=== PATIENT | female | born 1965 | race African-American/Black ===

== ENCOUNTER 2018-09-02 15:04 | Inpatient (IN) | payer MEDICARE, MEDICAID ==
[~2018-09-02] VITALS: Ht 162.6 cm; Wt 132.0 kg
[~2018-09-02 15:04] MED LIST: AYG5; BUDE6HFA; CIPR-263; COLL30OI; FLUO40CA49; FURO40TA5; HYDR-519; LEVO100T9
[2018-09-02 16:00] VITALS: BP 133/69
[2018-09-02] MEDS ORDERED: [UNRECOGNIZED DRUG - CODE] PO (16:46)
[2018-09-02] MEDS ORDERED: LISI40TA4 MT (16:46)
[2018-09-02] MEDS ORDERED: FLUO40CA49 MT (16:46)
[2018-09-02] MEDS ORDERED: CARV12.545 MT (16:46)
[2018-09-02] MEDS ORDERED: GABA-531 MT (16:46)
[2018-09-02] MEDS ORDERED: LINA290C MT (16:46)
[2018-09-02] MEDS ORDERED: PANT20TA3 MT (16:46)
[2018-09-02 17:15] VITALS: BP 146/58
[2018-09-02 17:23] VITALS: BP 133/69
[2018-09-02 18:47] LABS: HEMATOCRIT. 25.4 % (36.0-48.0); HEMOGLOBIN. 7.7 g/dL (12.0-16.0); MEAN CORPUSCULAR HEMOGLOBIN 20.9 pg (28.0-32.0); MEAN CORPUSCULAR VOLUME 69.1 fL (81.0-99.0); MEAN PLATELET VOLUME 7.5 fl (7.4-10.4); PLATELET 403 x1000/uL (130-400); RED BLOOD CELL COUNT 3.67 mill/uL (4.2-5.4); RED CELL DISTRIBUTION WIDTH 20.2 % (11.6-14.6)
[2018-09-02 18:49] LABS: INR 1.1; PROTHROMBIN TIME 11.1 sec (9.1-11.1)
[2018-09-02 18:59] LABS: CHLORIDE 104 mEq/L (98-107)
[2018-09-02] MEDS ORDERED: IPRATROPIUM/ALBUTEROL 0.5-3(2.5)MG/3ML NEB HHN PRN (19:45)
[2018-09-02 19:47] LABS: PLATELET ESTIMATE INCREASED
[2018-09-02 20:00] VITALS: BP 137/56
[2018-09-02] MEDS: HYDROCODONE/ACETAMINOPHEN 10/325MG TABLET PO PRN (20:15)
[2018-09-02] MEDS ORDERED: FUROSEMIDE 20MG/2ML VIAL IVP NR (20:30)
[2018-09-02] MEDS ORDERED: DICLOFENAC SODIUM 50MG EC TABLET PO SCH (21:00)
[2018-09-02] MEDS: LEVOTHYROXINE SODIUM 100MCG TABLET PO SCH (21:09)
[2018-09-02] MEDS: GABAPENTIN 300MG CAPSULE PO SCH (21:09)
[2018-09-02] MEDS: CARVEDILOL 12.5MG TABLET PO SCH (21:09)
[2018-09-02 23:05] VITALS: BP 121/51
[2018-09-02 23:20] VITALS: BP 117/49
[2018-09-03] VITALS (7 sets, daily range): BP systolic 105–160; BP diastolic 50–94
[2018-09-03] MEDS: DICLOFENAC SODIUM 50MG EC TABLET PO SCH ×3 (00:03→20:29)
[2018-09-03] MEDS: LEVOTHYROXINE SODIUM 100MCG TABLET PO SCH ×2 (00:03→15:20)
[2018-09-03] MEDS: IPRATROPIUM/ALBUTEROL 0.5-3(2.5)MG/3ML NEB HHN SCH ×3 (01:35→20:17)
[2018-09-03] MEDS: HYDROCODONE/ACETAMINOPHEN 10/325MG TABLET PO PRN ×3 (02:19→19:12)
[2018-09-03] MEDS: DEXT 5%/0.45% NACL 1000ML 1,000 ML IV SCH ×2 (02:23→08:50)
[2018-09-03] MEDS: GABAPENTIN 300MG CAPSULE PO SCH ×3 (06:00→20:29)
[2018-09-03] MEDS ORDERED: POVIDONE-IODINE OINT 28.4GM TOP ONE (06:43)
[2018-09-03] MEDS ORDERED: BUPIVACAINE HCL/EPINEPHRINE 0.5%/0.0005 30ML ONE (06:43)
[2018-09-03 06:54] LABS: BASOPHILS % 0.3 % (0.0-2.0); EOSINOPHILS % 1.1 % (0.0-5.0); HEMATOCRIT. 25.1 % (36.0-48.0); HEMOGLOBIN. 7.6 g/dL (12.0-16.0); LYMPHOCYTES % 15.8 % (20.0-50.0); MEAN CORPUSCULAR HEMOGLOBIN 21.3 pg (28.0-32.0); MEAN CORPUSCULAR VOLUME 70.7 fL (81.0-99.0); MEAN PLATELET VOLUME 7.5 fl (7.4-10.4); MONOCYTES % 10.4 % (2.0-8.0); NEUTROPHILS % 72.4 % (40.0-76.0); PLATELET 355 x1000/uL (130-400); RED BLOOD CELL COUNT 3.56 mill/uL (4.2-5.4); RED CELL DISTRIBUTION WIDTH 20.4 % (11.6-14.6)
[2018-09-03] MEDS ORDERED: BUPIVACAINE HCL/DEXTROSE/PF 0.75% 2ML AMP INJ ONE (06:55)
[2018-09-03 07:19] LABS: CHLORIDE 104 mEq/L (98-107)
[2018-09-03] MEDS ORDERED: VANCOMYCIN HCL 500 MG/VIAL ONE (07:46)
[2018-09-03] MEDS ORDERED: BUPIVACAINE HCL/PF 0.5% (5MG/ML) 10ML ONE (07:56)
[2018-09-03] MEDS ORDERED: BUPIVACAINE HCL 0.5% (5MG/ML) 50ML ONE (08:01)
[2018-09-03] MEDS ORDERED: SODIUM CHLORIDE 0.9% 1,000 ML IV NR (08:13)
[2018-09-03] MEDS ORDERED: MEPERIDINE HCL/PF 25MG/ML CPJ IV PRN (08:15)
[2018-09-03] MEDS ORDERED: HYDROMORPHONE HCL/PF 2MG/ML CPJ IV PRN (08:15)
[2018-09-03] MEDS ORDERED: ONDANSETRON HCL 4MG/2ML INJ IV PRN (08:15)
[2018-09-03] MEDS: CARVEDILOL 12.5MG TABLET PO SCH ×2 (09:00→20:29)
[2018-09-03] MEDS: LISINOPRIL 40MG TABLET PO SCH (09:00)
[2018-09-03] MEDS: FUROSEMIDE 40MG TABLET PO SCH (09:00)
[2018-09-03] MEDS: BUDESONIDE 0.5MG/2ML NEB HHN SCH ×2 (09:50→20:17)
[2018-09-03] MEDS: FLUOXETINE HCL 20MG CAPSULE PO SCH (11:39)
[2018-09-03] MEDS: PANTOPRAZOLE 40MG DR TABLET PO SCH (11:39)
[2018-09-03 16:51] LABS: INR 1.1; PROTHROMBIN TIME 11.4 sec (9.1-11.1)
[2018-09-03 17:29] LABS: HEMATOCRIT 25.6 % (36.0-48.0); HEMOGLOBIN 7.7 g/dL (12.0-16.0)
[2018-09-04] VITALS: BP 105/49
[2018-09-04] MEDS: BUDESONIDE 0.5MG/2ML NEB HHN SCH ×2 (00:05→09:05)
[2018-09-04] MEDS: IPRATROPIUM/ALBUTEROL 0.5-3(2.5)MG/3ML NEB HHN SCH ×3 (00:05→15:33)
[2018-09-04 04:00] VITALS: BP 137/75
[2018-09-04] MEDS: HYDROCODONE/ACETAMINOPHEN 10/325MG TABLET PO PRN ×2 (04:57→11:32)
[2018-09-04] MEDS: PANTOPRAZOLE 40MG DR TABLET PO SCH (05:46)
[2018-09-04] MEDS: GABAPENTIN 300MG CAPSULE PO SCH ×2 (05:46→14:55)
[2018-09-04] MEDS: LEVOTHYROXINE SODIUM 100MCG TABLET PO SCH (05:47)
[2018-09-04 08:00] VITALS: BP 126/51
[2018-09-04] MEDS: FLUOXETINE HCL 20MG CAPSULE PO SCH (09:06)
[2018-09-04] MEDS: LISINOPRIL 40MG TABLET PO SCH (09:06)
[2018-09-04] MEDS: DICLOFENAC SODIUM 50MG EC TABLET PO SCH (09:06)
[2018-09-04] MEDS: FUROSEMIDE 40MG TABLET PO SCH ×2 (09:06→09:09)
[2018-09-04] MEDS: CARVEDILOL 12.5MG TABLET PO SCH (09:06)
[2018-09-04 12:00] VITALS: BP 161/102
[2018-09-04] MEDS ORDERED: HYDROMORPHONE HCL/PF 2MG/ML CPJ IV PRN (12:30)
[2018-09-04] MEDS ORDERED: CLINDAMYCIN HCL 150MG CAPSULE PO SCH (14:00)
[2018-09-04] MEDS ORDERED: IOHEXOL-350 100 ML BOTTLE ONE (14:33)
[2018-09-04 16:00] VITALS: BP 96/45
[2018-09-04 18:32] VITALS: BP 96/45
== END 2018-09-04 20:35 | disposition home health service (06) | DRG 580 ==
LOC: 8WST 15:04
PROVIDERS: ADMIT Internal Medicine Critical Care Medicine; ATTEND Internal Medicine Critical Care Medicine
PROC: 30233N1 Transfusion of Nonautologous Red Blood Cells into Peripheral Vein, Percutaneous Approach (ICD-10-PCS; 2018-09-02)
PROC: 3E0T3BZ Introduction of Anesthetic Agent into Peripheral Nerves and Plexi, Percutaneous Approach (ICD-10-PCS; 2018-09-02)
PROC: 0KBT0ZZ Excision of Left Lower Leg Muscle, Open Approach (ICD-10-PCS; principal; 2018-09-03)
PROC: 0KBT0ZX Excision of Left Lower Leg Muscle, Open Approach, Diagnostic (ICD-10-PCS; 2018-09-03)
PROC: B548ZZA Ultrasonography of Superior Vena Cava, Guidance (ICD-10-PCS; 2018-09-04)
PROC: 02HV33Z Insertion of Infusion Device into Superior Vena Cava, Percutaneous Approach (ICD-10-PCS; 2018-09-04)
PROC: B5181ZA Fluoroscopy of Superior Vena Cava using Low Osmolar Contrast, Guidance (ICD-10-PCS; 2018-09-04)
DX: L03.116 Cellulitis of left lower limb (principal); L97.325 Non-pressure chronic ulcer of left ankle with muscle involvement without evidence of necrosis; I50.32 Chronic diastolic (congestive) heart failure; I83.223 Varicose veins of left lower extremity with both ulcer of ankle and inflammation; E46 Unspecified protein-calorie malnutrition; L97.329 Non-pressure chronic ulcer of left ankle with unspecified severity; D64.9 Anemia, unspecified; J44.9 Chronic obstructive pulmonary disease, unspecified; G62.9 Polyneuropathy, unspecified; E66.01 Morbid (severe) obesity due to excess calories; G89.29 Other chronic pain; E03.9 Hypothyroidism, unspecified; I11.0 Hypertensive heart disease with heart failure; F32.9 Major depressive disorder, single episode, unspecified; I73.9 Peripheral vascular disease, unspecified; E05.90 Thyrotoxicosis, unspecified without thyrotoxic crisis or storm; F41.9 Anxiety disorder, unspecified; Z88.0 Allergy status to penicillin; Z88.2 Allergy status to sulfonamides
CPT/HCPCS: 36415; 36569; 75635; 76937; 77001; 80048; 83036; 84134; 85014; 85018; 85384; 86850; 86900; 86920; 87070; 87075; 87077; 87102; 87186; 88304; 93923; 94640; A6261; C1725; J0171; J1170; J1940; J3370; J3490; J7040; J7620; J7626; P9016; Q9967

== ENCOUNTER 2018-10-21 16:52 | Inpatient (IN) | payer MEDICARE, MEDICAID ==
[~2018-10-21] VITALS: Ht 162.6 cm; Wt 126.6 kg
[~2018-10-21 16:52] MED LIST changes: +CARV12.545 MT; +FLUO40CA49 MT; +GABA-531 MT; +LINA290C MT; +LISI40TA4 MT; +PANT20TA3 MT; +[UNRECOGNIZED DRUG - CODE] PO
[2018-10-22 14:00] VITALS: BP 163/85
[2018-10-22] MEDS ORDERED: DOCUSATE SODIUM 100MG CAPSULE PO PRN (15:30)
[2018-10-22] MEDS ORDERED: LORAZEPAM 2MG/ML CPJ IV PRN (15:30)
[2018-10-22] MEDS ORDERED: ONDANSETRON HCL 4MG/2ML INJ IV PRN (15:30)
[2018-10-22] MEDS ORDERED: ACETAMINOPHEN 325MG TABLET PO PRN (15:30)
[2018-10-22] MEDS ORDERED: CLONIDINE 0.1MG TABLET PO PRN (15:30)
[2018-10-22 16:00] VITALS: BP 103/32
[2018-10-22 16:06] VITALS: BP 103/32
[2018-10-22] MEDS: HYDROMORPHONE HCL/PF 2MG/ML CPJ IV PRN ×2 (17:27→22:26)
[2018-10-22] MEDS ORDERED: INFLUENZA VIRUS VACCINE(AFLURIA) 0.5ML SYR IM ONE (17:30)
[2018-10-22 18:24] LABS: BASOPHILS % 0.7 % (0.0-2.0); EOSINOPHILS % 1.6 % (0.0-5.0); HEMATOCRIT. 29.8 % (36.0-48.0); HEMOGLOBIN. 8.9 g/dL (12.0-16.0); LYMPHOCYTES % 38.5 % (20.0-50.0); MEAN CORPUSCULAR VOLUME 73.8 fL (81.0-99.0); MEAN PLATELET VOLUME 6.6 fl (7.4-10.4); NEUTROPHILS % 52.2 % (40.0-76.0); PLATELET 480 x1000/uL (130-400); RED BLOOD CELL COUNT 4.03 mill/uL (4.2-5.4); RED CELL DISTRIBUTION WIDTH 21.3 % (11.6-14.6)
[2018-10-22 18:30] LABS: INR 1.1
[2018-10-22 18:36] LABS: CHLORIDE 105 mEq/L (98-107)
[2018-10-22 20:00] VITALS: BP 120/61
[2018-10-22] MEDS: HYDROCODONE/ACETAMINOPHEN 10/325MG TABLET PO PRN (20:49)
[2018-10-22] MEDS: ENOXAPARIN 30MG/0.3ML SYR SUBCUT SCH (20:49)
[2018-10-22] MEDS: BUDESONIDE 0.5MG/2ML NEB HHN SCH (21:06)
[2018-10-22] MEDS: IPRATROPIUM/ALBUTEROL 0.5-3(2.5)MG/3ML NEB INH PRN (21:06)
[2018-10-22] MEDS: SODIUM CHLORIDE 0.9% INJ 3ML FLUSH IVF SCH (22:26)
[2018-10-22] MEDS: DICLOFENAC SODIUM 50MG EC TABLET PO SCH (22:26)
[2018-10-22] MEDS: GABAPENTIN 300MG CAPSULE PO SCH (22:47)
[2018-10-23] VITALS (7 sets, daily range): BP systolic 111–145; BP diastolic 52–77
[2018-10-23] MEDS: HYDROMORPHONE HCL/PF 2MG/ML CPJ IV PRN ×4 (02:29→20:24)
[2018-10-23 06:53] LABS: BASOPHILS % 0.2 % (0.0-2.0); EOSINOPHILS % 2.8 % (0.0-5.0); HEMATOCRIT. 26.7 % (36.0-48.0); HEMOGLOBIN. 7.9 g/dL (12.0-16.0); LYMPHOCYTES % 45.6 % (20.0-50.0); MEAN CORPUSCULAR HEMOGLOBIN 21.9 pg (28.0-32.0); MEAN CORPUSCULAR VOLUME 74.3 fL (81.0-99.0); MEAN PLATELET VOLUME 6.7 fl (7.4-10.4); MONOCYTES % 9.7 % (2.0-8.0); NEUTROPHILS % 41.7 % (40.0-76.0); PLATELET 432 x1000/uL (130-400); RED BLOOD CELL COUNT 3.59 mill/uL (4.2-5.4); RED CELL DISTRIBUTION WIDTH 20.7 % (11.6-14.6)
[2018-10-23] MEDS: OMEPRAZOLE 20MG CAPSULE EXTENDED RELEASE PO SCH (06:56)
[2018-10-23] MEDS: GABAPENTIN 300MG CAPSULE PO SCH ×3 (06:56→22:01)
[2018-10-23] MEDS: SODIUM CHLORIDE 0.9% INJ 3ML FLUSH IVF SCH ×3 (06:58→22:01)
[2018-10-23 07:03] LABS: CHLORIDE 103 mEq/L (98-107)
[2018-10-23] MEDS: ENOXAPARIN 30MG/0.3ML SYR SUBCUT SCH (08:57)
[2018-10-23] MEDS: FUROSEMIDE 40MG TABLET PO SCH (10:31)
[2018-10-23] MEDS: DICLOFENAC SODIUM 50MG EC TABLET PO SCH ×2 (10:31→22:01)
[2018-10-23] MEDS: FLUOXETINE HCL 20MG CAPSULE PO SCH (10:32)
[2018-10-23] MEDS: IPRATROPIUM/ALBUTEROL 0.5-3(2.5)MG/3ML NEB INH PRN (13:46)
[2018-10-24] VITALS: BP 115/60
[2018-10-24] MEDS: HYDROMORPHONE HCL/PF 2MG/ML CPJ IV PRN ×3 (01:00→10:50)
[2018-10-24] MEDS: HYDROCODONE/ACETAMINOPHEN 10/325MG TABLET PO PRN ×2 (02:38→22:28)
[2018-10-24 03:40] VITALS: BP 130/68
[2018-10-24] MEDS: OMEPRAZOLE 20MG CAPSULE EXTENDED RELEASE PO SCH (04:10)
[2018-10-24] MEDS: GABAPENTIN 300MG CAPSULE PO SCH ×3 (04:10→21:51)
[2018-10-24] MEDS: SODIUM CHLORIDE 0.9% INJ 3ML FLUSH IVF SCH ×3 (06:28→21:51)
[2018-10-24 08:00] VITALS: BP 112/52
[2018-10-24] MEDS: FUROSEMIDE 40MG TABLET PO SCH (10:36)
[2018-10-24] MEDS: DICLOFENAC SODIUM 50MG EC TABLET PO SCH ×2 (10:36→21:51)
[2018-10-24] MEDS: FLUOXETINE HCL 20MG CAPSULE PO SCH (10:50)
[2018-10-24] MEDS ORDERED: NORMAL SALINE 0.9% 10 ML SYR ONE (12:24)
[2018-10-24] MEDS ORDERED: BACITRACIN 50,000 UNITS/VIAL ONE (12:25)
[2018-10-24] MEDS ORDERED: BUPIVACAINE HCL 0.5% (5MG/ML) 50ML ONE (12:25)
[2018-10-24] MEDS ORDERED: CLINDAMYCIN 900 MG in DEXTROSE 5% WATER 50 ML IV NR (12:36)
[2018-10-24] MEDS ORDERED: MIDAZOLAM HCL 2 MG/2 ML VIAL ONE ×3 (12:39→13:04)
[2018-10-24] MEDS ORDERED: FENTANYL CITRATE/PF 50MCG/ML 2ML VIAL ONE ×3 (12:40→13:33)
[2018-10-24] MEDS ORDERED: BUPIVACAINE HCL/DEXTROSE/PF 0.75% 2ML AMP INJ ONE (12:47)
[2018-10-24] MEDS ORDERED: LIDOCAINE HCL/PF 1% 10 MG/ML 5ML VIAL ONE ×2 (13:06→13:19)
[2018-10-24] MEDS ORDERED: PROPOFOL 200MG/20ML VIAL IV ONE ×2 (13:10→13:35)
[2018-10-24] MEDS ORDERED: FENTANYL CITRATE/PF 50MCG/ML 2ML VIAL IV PRN ×2 (14:30)
[2018-10-24] MEDS ORDERED: DIPHENHYDRAMINE 50MG/ML VIAL IV PRN (14:30)
[2018-10-24] MEDS ORDERED: DEXAMETHASONE 10 MG/ML VIAL IV PRN (14:30)
[2018-10-24] MEDS ORDERED: ONDANSETRON HCL 4MG/2ML INJ IV PRN (14:30)
[2018-10-24] MEDS: FENTANYL CITRATE/PF 50MCG/ML 2ML VIAL IV PRN ×2 (16:59→17:42)
[2018-10-24 17:45] VITALS: BP 135/71
[2018-10-24 20:00] VITALS: BP 128/51
[2018-10-25] VITALS: BP 106/67
[2018-10-25] MEDS: IPRATROPIUM/ALBUTEROL 0.5-3(2.5)MG/3ML NEB INH PRN ×2 (00:42→09:34)
[2018-10-25] MEDS: BUDESONIDE 0.5MG/2ML NEB HHN SCH ×2 (00:43→09:34)
[2018-10-25 04:00] VITALS: BP 123/61
[2018-10-25] MEDS: HYDROMORPHONE HCL/PF 2MG/ML CPJ IV PRN (04:20)
[2018-10-25] MEDS: GABAPENTIN 300MG CAPSULE PO SCH ×2 (06:26→14:08)
[2018-10-25] MEDS: SODIUM CHLORIDE 0.9% INJ 3ML FLUSH IVF SCH (06:26)
[2018-10-25] MEDS: OMEPRAZOLE 20MG CAPSULE EXTENDED RELEASE PO SCH (06:26)
[2018-10-25 07:53] VITALS: BP 113/64
[2018-10-25] MEDS: FLUOXETINE HCL 20MG CAPSULE PO SCH (07:58)
[2018-10-25] MEDS: DICLOFENAC SODIUM 50MG EC TABLET PO SCH (07:59)
[2018-10-25] MEDS: FUROSEMIDE 40MG TABLET PO SCH (07:59)
[2018-10-25] MEDS: HYDROCODONE/ACETAMINOPHEN 10/325MG TABLET PO PRN ×2 (07:59→14:08)
[2018-10-25 10:24] VITALS: BP 113/64
[2018-10-25 12:00] VITALS: BP 90/42
[2018-10-25 14:08] VITALS: BP 127/73
[2018-10-26] MEDS ORDERED: FAMOTIDINE 20MG TABLET PO SCH (09:00)
== END 2018-10-25 15:02 | disposition home health service (06) | DRG 571 ==
LOC: 6EST 16:52 → 8WST 10-23 00:45
PROVIDERS: ADMIT Internal Medicine Critical Care Medicine; ATTEND Internal Medicine Critical Care Medicine
PROC: 0JBR0ZZ Excision of Left Foot Subcutaneous Tissue and Fascia, Open Approach (ICD-10-PCS; principal; 2018-10-24)
DX: L03.116 Cellulitis of left lower limb (principal); L97.329 Non-pressure chronic ulcer of left ankle with unspecified severity; I50.32 Chronic diastolic (congestive) heart failure; Z68.42 Body mass index [BMI] 45.0-49.9, adult; I73.9 Peripheral vascular disease, unspecified; D64.9 Anemia, unspecified; J44.9 Chronic obstructive pulmonary disease, unspecified; I11.0 Hypertensive heart disease with heart failure; E03.9 Hypothyroidism, unspecified; Z96.652 Presence of left artificial knee joint; F32.9 Major depressive disorder, single episode, unspecified; E66.01 Morbid (severe) obesity due to excess calories; F41.9 Anxiety disorder, unspecified; G62.9 Polyneuropathy, unspecified; I87.2 Venous insufficiency (chronic) (peripheral); G89.29 Other chronic pain; Z80.8 Family history of malignant neoplasm of other organs or systems; Z83.3 Family history of diabetes mellitus; Z86.718 Personal history of other venous thrombosis and embolism; Z88.0 Allergy status to penicillin; Z88.2 Allergy status to sulfonamides; Z88.8 Allergy status to other drugs, medicaments and biological substances; Z79.1 Long term (current) use of non-steroidal anti-inflammatories (NSAID); Z79.2 Long term (current) use of antibiotics; Z79.899 Other long term (current) drug therapy
CPT/HCPCS: 36415; 71045; 80048; 93005; 94640; J1170; J1200; J1650; J2250; J2704; J3010; J3490; J7060; J7620; J7626

== ENCOUNTER 2023-01-13 17:14 | Inpatient (IN) | payer MEDICARE, MEDICAID ==
[~2023-01-13] VITALS: Ht 162.6 cm; Wt 106.6 kg
[~2023-01-13 17:14] MED LIST changes: -GABA-531 MT; +GABA-532 MT; +LISI40TA13 MT; -LISI40TA4 MT; +PANT20TA17 MT; -PANT20TA3 MT
[2023-01-13] MEDS ORDERED: ACETAMINOPHEN 325MG TABLET PO ONE (18:45)
[2023-01-13 19:18] LABS: BASOPHILS % 0.3 % (0.0-2.0); EOSINOPHILS % 4.1 % (0.0-5.0); HEMATOCRIT. 35.4 % (36.0-48.0); HEMOGLOBIN. 11.7 g/dL (12.0-16.0); LYMPHOCYTES % 44.1 % (20.0-50.0); MEAN CORPUSCULAR HEMOGLOBIN 30.9 pg (28.0-32.0); MEAN CORPUSCULAR VOLUME 93.3 fL (81.0-99.0); MEAN PLATELET VOLUME 7.6 fl (7.4-10.4); MONOCYTES % 7.6 % (2.0-8.0); NEUTROPHILS % 43.9 % (40.0-76.0); PLATELET 235 x1000/uL (130-400); RED BLOOD CELL COUNT 3.79 mill/uL (4.2-5.4)
[2023-01-13 19:23] LABS: CHLORIDE 106 mEq/L (98-107)
[2023-01-13] MEDS ORDERED: ACETAMINOPHEN 325MG TABLET PO NR (22:45)
[2023-01-13] MEDS ORDERED: KETOROLAC 30MG/ML VIAL IV PRN (22:45)
[2023-01-13] MEDS: BUDESONIDE 0.5MG/2ML NEB HHN SCH (23:30)
[2023-01-13] MEDS: IPRATROPIUM/ALBUTEROL 0.5-3(2.5)MG/3ML NEB HHN SCH (23:30)
[2023-01-14 01:19] LABS: CLARITY URINE CLEAR (CLEAR); COLOR URINE YELLOW (YELLOW); KETONES URINE TRACE (NEGATIVE); LEUKOCYTE ESTERASE URINE TRACE (NEGATIVE); NITRITE URINE NEGATIVE (NEGATIVE); OCCULT BLOOD URINE NEGATIVE (NEGATIVE); PH URINE 6.5 (4.5-8.0); PROTEIN URINE NEGATIVE (NEGATIVE)
[2023-01-14] MEDS ORDERED: MORPHINE SULFATE 4 MG/ML CPJ (NOT FOR IM USE) IV ONE (02:15)
[2023-01-14] MEDS: LIDOCAINE 5% PATCH TOP SCH ×2 (02:53→11:12)
[2023-01-14] MEDS ORDERED: ONDANSETRON HCL 4MG/2ML INJ IV PRN (03:00)
[2023-01-14] MEDS ORDERED: CLONIDINE 0.1MG TABLET PO PRN (03:00)
[2023-01-14] MEDS ORDERED: DIPHENHYDRAMINE 50MG/ML VIAL IV PRN (03:00)
[2023-01-14] MEDS ORDERED: ACETAMINOPHEN 325MG TABLET PO PRN (03:00)
[2023-01-14] MEDS ORDERED: NALOXONE HCL 0.4MG/ML VIAL IV PRN (03:15)
[2023-01-14 10:00] VITALS: BP 160/60
[2023-01-14 10:53] LABS: BASOPHILS % 0.4 % (0.0-2.0); EOSINOPHILS % 4.8 % (0.0-5.0); HEMATOCRIT. 35.5 % (36.0-48.0); HEMOGLOBIN. 12.1 g/dL (12.0-16.0); LYMPHOCYTES % 34.5 % (20.0-50.0); MEAN CORPUSCULAR HEMOGLOBIN 31.1 pg (28.0-32.0); MEAN CORPUSCULAR VOLUME 91.5 fL (81.0-99.0); MEAN PLATELET VOLUME 7.8 fl (7.4-10.4); MONOCYTES % 8.3 % (2.0-8.0); PLATELET 233 x1000/uL (130-400); RED BLOOD CELL COUNT 3.88 mill/uL (4.2-5.4); RED CELL DISTRIBUTION WIDTH 13.9 % (11.6-14.6)
[2023-01-14] MEDS: HYDROCODONE/ACETAMINOPHEN 5/325MG TABLET PO PRN ×2 (11:13→22:24)
[2023-01-14 11:23] LABS: CHLORIDE 104 mEq/L (98-107)
[2023-01-14] MEDS: IPRATROPIUM/ALBUTEROL 0.5-3(2.5)MG/3ML NEB HHN SCH ×2 (13:16→16:58)
[2023-01-14] MEDS ORDERED: POTASSIUM CHLORIDE 20MEQ TABLET SR PO NR (15:15)
[2023-01-14] MEDS ORDERED: LEVOTHYROXINE SODIUM 100MCG TABLET PO SCH (16:15)
[2023-01-14] MEDS ORDERED: NON FORMULARY PATIENT HOME MED XX SCH ×2 (16:15)
[2023-01-14] MEDS ORDERED: GABA800T97 PO ×2 (16:48→19:22)
[2023-01-14] MEDS: BUDESONIDE 0.5MG/2ML NEB HHN SCH (16:53)
[2023-01-14] MEDS ORDERED: PANT40TA51 MT (16:54)
[2023-01-14] MEDS ORDERED: OXYC1TAB12 PO (16:54)
[2023-01-14] MEDS ORDERED: LEVO100T9 MT ×2 (16:54→20:36)
[2023-01-14] MEDS ORDERED: FERR-63 PO (17:00)
[2023-01-14] MEDS ORDERED: DOCU100T MT (17:00)
[2023-01-14] MEDS: AMLODIPINE 10MG TABLET PO SCH (17:20)
[2023-01-14] MEDS: PANTOPRAZOLE 40MG DR TABLET PO SCH (17:20)
[2023-01-14] MEDS: FLUOXETINE HCL 20MG CAPSULE PO SCH (17:21)
[2023-01-14] MEDS: GABAPENTIN 300MG CAPSULE PO SCH (17:21)
[2023-01-14] MEDS: CARVEDILOL 12.5MG TABLET PO SCH (17:21)
[2023-01-14] MEDS ORDERED: CYCL10TA21 PO (19:16)
[2023-01-14] MEDS ORDERED: MELO-104 PO (19:22)
[2023-01-14] MEDS ORDERED: FLUO40CA49 PO (19:25)
[2023-01-14 19:54] VITALS: BP 128/84
[2023-01-14 23:33] VITALS: BP 136/82
[2023-01-15] MEDS: BUDESONIDE 0.5MG/2ML NEB HHN SCH ×3 (03:55→22:43)
[2023-01-15 04:00] VITALS: BP 154/36
[2023-01-15] MEDS: HYDROCODONE/ACETAMINOPHEN 5/325MG TABLET PO PRN ×3 (05:48→21:56)
[2023-01-15] MEDS: PANTOPRAZOLE 40MG DR TABLET PO SCH (05:48)
[2023-01-15 06:22] LABS: BASOPHILS % 0.3 % (0.0-2.0); EOSINOPHILS % 3.6 % (0.0-5.0); HEMATOCRIT. 37.3 % (36.0-48.0); HEMOGLOBIN. 12.6 g/dL (12.0-16.0); LYMPHOCYTES % 28.9 % (20.0-50.0); MEAN CORPUSCULAR HEMOGLOBIN 30.9 pg (28.0-32.0); MEAN CORPUSCULAR VOLUME 91.7 fL (81.0-99.0); MEAN PLATELET VOLUME 7.9 fl (7.4-10.4); MONOCYTES % 9.8 % (2.0-8.0); NEUTROPHILS % 57.4 % (40.0-76.0); PLATELET 246 x1000/uL (130-400); RED BLOOD CELL COUNT 4.07 mill/uL (4.2-5.4); RED CELL DISTRIBUTION WIDTH 14.2 % (11.6-14.6)
[2023-01-15 06:45] LABS: CHLORIDE 106 mEq/L (98-107)
[2023-01-15 06:55] LABS: HDL CHOLESTEROL 87 mg/dL (40-59); LDL CHOLESTEROL 122 mg/dL (5-100)
[2023-01-15 08:00] VITALS: BP 147/78
[2023-01-15] MEDS ORDERED: POTASSIUM CHLORIDE 20MEQ TABLET SR PO NR (09:00)
[2023-01-15] MEDS ORDERED: LORAZEPAM 0.5MG TABLET PO NR (09:00)
[2023-01-15] MEDS: FLUOXETINE HCL 20MG CAPSULE PO SCH ×2 (09:11→17:32)
[2023-01-15] MEDS: GABAPENTIN 300MG CAPSULE PO SCH ×3 (09:11→17:32)
[2023-01-15] MEDS: FUROSEMIDE 40MG TABLET PO SCH (09:11)
[2023-01-15] MEDS: CARVEDILOL 12.5MG TABLET PO SCH ×2 (09:17→17:33)
[2023-01-15] MEDS: LISINOPRIL 40MG TABLET PO SCH (09:18)
[2023-01-15] MEDS: AMLODIPINE 10MG TABLET PO SCH (09:18)
[2023-01-15] MEDS: IPRATROPIUM/ALBUTEROL 0.5-3(2.5)MG/3ML NEB HHN SCH (09:55)
[2023-01-15 12:00] VITALS: BP 142/75
[2023-01-15 20:00] VITALS: BP 109/78
[2023-01-15] MEDS: ATORVASTATIN CALCIUM 20MG TABLET PO SCH (21:55)
[2023-01-16 03:30] VITALS: BP 105/74
[2023-01-16] MEDS: HYDROCODONE/ACETAMINOPHEN 5/325MG TABLET PO PRN ×4 (03:45→20:47)
[2023-01-16] MEDS: LEVOTHYROXINE SODIUM 100MCG TABLET PO SCH (06:22)
[2023-01-16] MEDS: PANTOPRAZOLE 40MG DR TABLET PO SCH (06:23)
[2023-01-16 06:31] LABS: BASOPHILS % 0.4 % (0.0-2.0); EOSINOPHILS % 3.5 % (0.0-5.0); HEMATOCRIT. 36.8 % (36.0-48.0); HEMOGLOBIN. 12.4 g/dL (12.0-16.0); LYMPHOCYTES % 36.8 % (20.0-50.0); MEAN CORPUSCULAR HEMOGLOBIN 31.1 pg (28.0-32.0); MEAN CORPUSCULAR VOLUME 92.1 fL (81.0-99.0); MEAN PLATELET VOLUME 7.9 fl (7.4-10.4); MONOCYTES % 11.6 % (2.0-8.0); NEUTROPHILS % 47.7 % (40.0-76.0); PLATELET 240 x1000/uL (130-400); RED CELL DISTRIBUTION WIDTH 14.3 % (11.6-14.6)
[2023-01-16 07:00] LABS: CHLORIDE 105 mEq/L (98-107)
[2023-01-16 08:00] VITALS: BP 130/74
[2023-01-16] MEDS: CARVEDILOL 12.5MG TABLET PO SCH ×2 (09:32→17:59)
[2023-01-16] MEDS: AMLODIPINE 10MG TABLET PO SCH (09:34)
[2023-01-16] MEDS: GABAPENTIN 300MG CAPSULE PO SCH ×3 (09:34→17:58)
[2023-01-16] MEDS: FUROSEMIDE 40MG TABLET PO SCH (09:35)
[2023-01-16] MEDS: FLUOXETINE HCL 20MG CAPSULE PO SCH ×2 (09:35→17:58)
[2023-01-16] MEDS: LISINOPRIL 40MG TABLET PO SCH (09:35)
[2023-01-16 12:00] VITALS: BP 130/74
[2023-01-16] MEDS: IPRATROPIUM/ALBUTEROL 0.5-3(2.5)MG/3ML NEB HHN SCH (15:32)
[2023-01-16 16:00] VITALS: BP 130/74
[2023-01-16 20:00] VITALS: BP 112/67
[2023-01-16] MEDS: ATORVASTATIN CALCIUM 20MG TABLET PO SCH (20:53)
[2023-01-17] VITALS (7 sets, daily range): BP systolic 100–129; BP diastolic 59–80
[2023-01-17] MEDS: HYDROCODONE/ACETAMINOPHEN 5/325MG TABLET PO PRN ×3 (03:45→20:29)
[2023-01-17] MEDS: LEVOTHYROXINE SODIUM 100MCG TABLET PO SCH (06:20)
[2023-01-17] MEDS: AMLODIPINE 10MG TABLET PO SCH (08:20)
[2023-01-17] MEDS: GABAPENTIN 300MG CAPSULE PO SCH ×3 (08:20→16:44)
[2023-01-17] MEDS: IPRATROPIUM/ALBUTEROL 0.5-3(2.5)MG/3ML NEB HHN SCH ×2 (08:20→16:23)
[2023-01-17] MEDS: BUDESONIDE 0.5MG/2ML NEB HHN SCH (08:20)
[2023-01-17] MEDS: CARVEDILOL 12.5MG TABLET PO SCH ×2 (08:21→16:56)
[2023-01-17] MEDS: FAMOTIDINE 20MG TABLET PO SCH ×2 (08:21→20:34)
[2023-01-17] MEDS: LISINOPRIL 40MG TABLET PO SCH (08:22)
[2023-01-17] MEDS: FUROSEMIDE 40MG TABLET PO SCH (08:22)
[2023-01-17] MEDS: FLUOXETINE HCL 20MG CAPSULE PO SCH ×2 (08:42→16:43)
[2023-01-17] MEDS: ATORVASTATIN CALCIUM 20MG TABLET PO SCH (20:28)
== END 2023-01-17 23:41 | disposition home health service (06) | DRG 552 ==
LOC: ER 17:14 → 4WST 01-14 02:06 → 6EST 01-16 17:24
PROVIDERS: ADMIT Family Medicine Adult Medicine; ATTEND Family Medicine Adult Medicine
DX: M51.37 Other intervertebral disc degeneration, lumbosacral region (principal); I50.32 Chronic diastolic (congestive) heart failure; Z68.41 Body mass index [BMI] 40.0-44.9, adult; M79.7 Fibromyalgia; Z96.652 Presence of left artificial knee joint; I11.0 Hypertensive heart disease with heart failure; G62.9 Polyneuropathy, unspecified; E03.9 Hypothyroidism, unspecified; D64.9 Anemia, unspecified; E66.9 Obesity, unspecified; I83.009 Varicose veins of unspecified lower extremity with ulcer of unspecified site; F41.9 Anxiety disorder, unspecified; F32.A Depression, unspecified; E78.5 Hyperlipidemia, unspecified; I87.8 Other specified disorders of veins; J44.9 Chronic obstructive pulmonary disease, unspecified; G89.4 Chronic pain syndrome; M16.11 Unilateral primary osteoarthritis, right hip; M48.02 Spinal stenosis, cervical region; Z87.891 Personal history of nicotine dependence; Z88.0 Allergy status to penicillin; Z88.2 Allergy status to sulfonamides; Z91.018 Allergy to other foods; Z95.828 Presence of other vascular implants and grafts; Z88.8 Allergy status to other drugs, medicaments and biological substances; Z91.09 Other allergy status, other than to drugs and biological substances; Z79.899 Other long term (current) drug therapy
CPT/HCPCS: 36415; 71045; 72141; 72146; 72148; 73502; 80048; 80053; 80061; 81003; 83735; 85025; 93005; 93306; 93970; 93971; 94640; 97162; 99285; J2270; J7626

== ENCOUNTER 2023-12-19 19:10 | Inpatient (IN) | payer MEDICARE, MEDICAID ==
[~2023-12-19] VITALS: Ht 165.1 cm; Wt 113.4 kg
[~2023-12-19 19:10] MED LIST changes: -BUDE6HFA; -CIPR-263; -COLL30OI; +CYCL10TA21 PO; +DOCU100T MT; +FERR-63 PO; -FLUO40CA49; -FLUO40CA49 MT; +FLUO40CA49 PO; -FURO40TA5; -GABA-532 MT; +GABA800T97 PO; -HYDR-519; -LEVO100T9; +LEVO100T9 MT; +MELO-104 PO; +OXYC1TAB12 PO; -PANT20TA17 MT; +PANT40TA51 MT; -[UNRECOGNIZED DRUG - CODE] PO
[2023-12-19] MEDS ORDERED: NALOXONE HCL 0.4MG/ML 1ML VIAL IV PRN (19:45)
[2023-12-19] MEDS ORDERED: MAGNESIUM/ALUMINUM HYDROXIDE/SIMETHICONE 30ML UDC PO PRN (19:45)
[2023-12-19] MEDS ORDERED: DOCUSATE SODIUM 100MG CAPSULE PO PRN (19:45)
[2023-12-19] MEDS ORDERED: IPRATROPIUM/ALBUTEROL 0.5-3(2.5)MG/3ML NEB HHN PRN (19:45)
[2023-12-19] MEDS ORDERED: ONDANSETRON HCL 4MG/2ML INJ IV PRN (19:45)
[2023-12-19] MEDS ORDERED: CLONIDINE 0.1MG TABLET PO PRN (19:45)
[2023-12-19] MEDS ORDERED: ENOXAPARIN 30MG/0.3ML SYR SUBCUT SCH (19:45)
[2023-12-19 20:00] VITALS: BP 112/56; PULSE 72; RESP 19; TEMP 97.3
[2023-12-19] MEDS: HYDROCODONE/ACETAMINOPHEN 5/325MG TABLET PO PRN (20:39)
[2023-12-19] MEDS: ENOXAPARIN 30MG/0.3ML SYR SUBCUT SCH (21:27)
[2023-12-19] MEDS ORDERED: TOPUD MT (21:45)
[2023-12-20] MEDS ORDERED: HYDROCODONE/ACETAMINOPHEN 10/325MG TABLET PO PRN (00:15)
[2023-12-20] MEDS: CYCLOBENZAPRINE 10MG TABLET PO PRN (01:04)
[2023-12-20] MEDS: LEVOTHYROXINE SODIUM 100MCG TABLET PO SCH (06:30)
[2023-12-20] MEDS: FAMOTIDINE 20MG TABLET PO SCH (06:30)
[2023-12-20 06:51] LABS: BASOPHILS % 0.6 % (0.0-2.0); EOSINOPHILS % 4.3 % (0.0-5.0); HEMATOCRIT. 34.8 % (36.0-48.0); HEMOGLOBIN. 11.7 g/dL (12.0-16.0); LYMPHOCYTES % 40.5 % (20.0-50.0); MEAN CORPUSCULAR HEMOGLOBIN 30.5 pg (28.0-32.0); MEAN CORPUSCULAR HGB CONC 33.5 g/dL (31.0-37.0); MEAN CORPUSCULAR VOLUME 91.2 fL (81.0-99.0); MEAN PLATELET VOLUME 7.7 fl (7.4-10.4); NEUTROPHILS % 42.6 % (40.0-76.0); PLATELET 288 x1000/uL (130-400); RED BLOOD CELL COUNT 3.82 mill/uL (4.2-5.4); RED CELL DISTRIBUTION WIDTH 15.5 % (11.6-14.6); WHITE BLOOD COUNT 4.3 x1000/uL (4.5-11.0)
[2023-12-20 07:11] LABS: CHLORIDE 105 mEq/L (98-107); POTASSIUM 4.1 mEq/L (3.5-5.1); SODIUM 139 mEq/L (136-145)
[2023-12-20 07:15] LABS: CALCIUM 8.8 mg/dL (8.7-10.4); CARBON DIOXIDE 27 mEq/L (21-32)
[2023-12-20 07:20] LABS: ALBUMIN 3.5 g/dL (3.2-4.8); CREATININE 0.6 mg/dL (0.6-1.0); GLUCOSE 80 mg/dL (70-105); UREA NITROGEN BLOOD 17 mg/dL (9-23)
[2023-12-20 07:21] LABS: ALANINE AMINOTRANSFERASE 14 IU/L (10-49)
[2023-12-20 07:22] LABS: ASPARTATE AMINOTRANSFERASE 24 IU/L (<34); BILIRUBIN TOTAL 0.3 mg/dL (0.1-1.0); PREALBUMIN 8.7 mg/dl (10.0-40.0); PROTEIN TOTAL 7.5 g/dL (6.0-8.3)
[2023-12-20 08:00] VITALS: BP 143/74; PULSE 65; RESP 18; TEMP 97.1
[2023-12-20] MEDS: MELOXICAM 7.5MG TABLET PO SCH (08:23)
[2023-12-20] MEDS: GABAPENTIN 400MG CAPSULE PO SCH (08:23)
[2023-12-20] MEDS: LISINOPRIL 40MG TABLET PO SCH (08:24)
[2023-12-20] MEDS: CARVEDILOL 12.5MG TABLET PO SCH (08:24)
[2023-12-20] MEDS: ACETAMINOPHEN 325MG TABLET PO PRN (08:26)
[2023-12-20 20:00] VITALS: BP 120/60; PULSE 58; RESP 18; TEMP 97.5
[2023-12-21 06:18] LABS: BASOPHILS % 0.6 % (0.0-2.0); EOSINOPHILS % 4.9 % (0.0-5.0); HEMATOCRIT. 36.3 % (36.0-48.0); LYMPHOCYTES % 39.9 % (20.0-50.0); MEAN CORPUSCULAR HEMOGLOBIN 30.3 pg (28.0-32.0); MEAN CORPUSCULAR VOLUME 91.8 fL (81.0-99.0); MEAN PLATELET VOLUME 7.7 fl (7.4-10.4); MONOCYTES % 12.1 % (2.0-8.0); NEUTROPHILS % 42.5 % (40.0-76.0); PLATELET 277 x1000/uL (130-400); RED BLOOD CELL COUNT 3.95 mill/uL (4.2-5.4); RED CELL DISTRIBUTION WIDTH 15.8 % (11.6-14.6); WHITE BLOOD COUNT 3.7 x1000/uL (4.5-11.0)
[2023-12-21 06:56] LABS: CHLORIDE 107 mEq/L (98-107); POTASSIUM 4.1 mEq/L (3.5-5.1); SODIUM 140 mEq/L (136-145)
[2023-12-21 06:57] LABS: CALCIUM 8.8 mg/dL (8.7-10.4); CARBON DIOXIDE 28 mEq/L (21-32)
[2023-12-21 07:01] LABS: IRON 55 ug/dL (50-170)
[2023-12-21 07:02] LABS: CREATININE 0.6 mg/dL (0.6-1.0); GLUCOSE 82 mg/dL (70-105); UREA NITROGEN BLOOD 18 mg/dL (9-23)
[2023-12-21 07:04] LABS: TOTAL IRON BINDING CAPACITY 197 ug/dl (250-425)
[2023-12-21 07:05] LABS: FERRITIN 54 ng/mL (10-291)
[2023-12-21 07:06] LABS: FOLIC ACID (FOLATE) SERUM 9.84 ng/mL (>5.38)
[2023-12-21 07:07] LABS: VITAMIN B12 SERUM 366 pg/mL (211-911)
[2023-12-21 08:00] VITALS: BP 124/71; PULSE 67; RESP 18; TEMP 97.1
[2023-12-21] MEDS: CYANOCOBALAMIN 1000MCG/ML VIAL IM SCH (13:20)
[2023-12-21 20:00] VITALS: BP 106/60; PULSE 72; RESP 18; TEMP 97.5
[2023-12-21] MEDS: OXYCODONE HCL 10MG TABLET SR 12HR PO SCH (21:08)
[2023-12-22 08:00] VITALS: BP 110/47; PULSE 62; RESP 18; TEMP 97.9
[2023-12-22 20:00] VITALS: BP 100/54; PULSE 60; RESP 18; TEMP 96.9
[2023-12-23 08:00] VITALS: BP 112/60; PULSE 64; RESP 18; TEMP 97.4
[2023-12-23 19:38] VITALS: BP 99/59; PULSE 94; RESP 20; TEMP 97.6
[2023-12-24 07:52] VITALS: BP 123/54; PULSE 56; RESP 20; TEMP 97.8
[2023-12-24] MEDS: ERGOCALCIFEROL 50000UNITS CAPSULE PO SCH (15:27)
[2023-12-24 20:00] VITALS: BP 110/57; PULSE 58; RESP 19; TEMP 97
[2023-12-25 08:00] VITALS: BP 124/55; PULSE 53; RESP 17; TEMP 96.4
[2023-12-25] MEDS: ASCORBIC ACID 500 MG TABLET PO SCH (08:52)
[2023-12-25] MEDS: FOLIC ACID 1MG TABLET PO SCH (08:52)
[2023-12-25] MEDS: LORATADINE 10MG TABLET PO NR (14:20)
[2023-12-25 20:00] VITALS: BP 123/54; PULSE 60; RESP 19; TEMP 97
[2023-12-26 06:57] LABS: BASOPHILS % 0.7 % (0.0-2.0); EOSINOPHILS % 5.2 % (0.0-5.0); HEMATOCRIT. 37.1 % (36.0-48.0); LYMPHOCYTES % 41.9 % (20.0-50.0); MEAN CORPUSCULAR HEMOGLOBIN 29.7 pg (28.0-32.0); MEAN CORPUSCULAR HGB CONC 32.4 g/dL (31.0-37.0); MEAN CORPUSCULAR VOLUME 91.6 fL (81.0-99.0); MEAN PLATELET VOLUME 7.6 fl (7.4-10.4); MONOCYTES % 10.7 % (2.0-8.0); NEUTROPHILS % 41.5 % (40.0-76.0); PLATELET 267 x1000/uL (130-400); RED BLOOD CELL COUNT 4.05 mill/uL (4.2-5.4); RED CELL DISTRIBUTION WIDTH 15.6 % (11.6-14.6)
[2023-12-26 07:20] LABS: CHLORIDE 104 mEq/L (98-107); POTASSIUM 4.3 mEq/L (3.5-5.1); SODIUM 138 mEq/L (136-145)
[2023-12-26 07:21] LABS: CALCIUM 9.9 mg/dL (8.7-10.4); CARBON DIOXIDE 30 mEq/L (21-32)
[2023-12-26 07:26] LABS: ALANINE AMINOTRANSFERASE 39 IU/L (10-49); CREATININE 0.6 mg/dL (0.6-1.0); GLUCOSE 76 mg/dL (70-105); UREA NITROGEN BLOOD 21 mg/dL (9-23)
[2023-12-26 07:27] LABS: ALBUMIN 3.5 g/dL (3.2-4.8)
[2023-12-26 07:28] LABS: ASPARTATE AMINOTRANSFERASE 35 IU/L (<34); BILIRUBIN TOTAL 0.3 mg/dL (0.1-1.0); PROTEIN TOTAL 7.1 g/dL (6.0-8.3)
[2023-12-26 08:00] VITALS: PULSE 82; RESP 20; TEMP 98.8
[2023-12-26] MEDS: MELOXICAM 15 MG TABLET PO SCH (08:44)
[2023-12-26 19:48] VITALS: BP 97/53; PULSE 63; RESP 20; TEMP 97.1
[2023-12-26] MEDS: HYDROCODONE/ACETAMINOPHEN 10/325MG TABLET PO PRN (22:46)
[2023-12-27 08:00] VITALS: BP 111/66; PULSE 81; RESP 19; TEMP 97.8
[2023-12-27 20:00] VITALS: BP 100/52; PULSE 60; RESP 18; TEMP 97
[2023-12-28 08:00] VITALS: BP 114/51; PULSE 61; RESP 16; TEMP 97.7
[2023-12-28 19:50] VITALS: BP 109/51; PULSE 61; RESP 18; TEMP 98.2
[2023-12-29 08:00] VITALS: BP 118/55; PULSE 62; RESP 18; TEMP 98.1
[2023-12-29 20:00] VITALS: BP 111/58; PULSE 65; RESP 18; TEMP 97.2
[2023-12-30 08:00] VITALS: BP 89/39; PULSE 63; RESP 18; TEMP 97.1
[2023-12-30 09:15] VITALS: BP 100/40; PULSE 69
[2023-12-30 20:00] VITALS: BP 105/49; PULSE 61; RESP 19; TEMP 97.6
[2023-12-31 08:00] VITALS: BP 130/56; PULSE 72; RESP 20; TEMP 97.9
[2023-12-31 20:00] VITALS: BP 159/76; PULSE 70; RESP 20; TEMP 97
[2023-12-31] MEDS: ENOXAPARIN 30MG/0.3ML SYR SUBCUT SCH (21:00)
[2024-01-01 06:02] LABS: BASOPHILS % 0.5 % (0.0-2.0); EOSINOPHILS % 6.4 % (0.0-5.0); HEMATOCRIT. 35.5 % (36.0-48.0); HEMOGLOBIN. 12.1 g/dL (12.0-16.0); MEAN CORPUSCULAR HEMOGLOBIN 31.1 pg (28.0-32.0); MEAN CORPUSCULAR VOLUME 91.5 fL (81.0-99.0); MEAN PLATELET VOLUME 8.2 fl (7.4-10.4); MONOCYTES % 11.7 % (2.0-8.0); NEUTROPHILS % 30.4 % (40.0-76.0); PLATELET 186 x1000/uL (130-400); RED BLOOD CELL COUNT 3.88 mill/uL (4.2-5.4); RED CELL DISTRIBUTION WIDTH 15.6 % (11.6-14.6); WHITE BLOOD COUNT 3.4 x1000/uL (4.5-11.0)
[2024-01-01 06:08] LABS: CHLORIDE 105 mEq/L (98-107); SODIUM 139 mEq/L (136-145)
[2024-01-01 06:09] LABS: CALCIUM 9.7 mg/dL (8.7-10.4); CARBON DIOXIDE 29 mEq/L (21-32)
[2024-01-01 06:14] LABS: CREATININE 0.5 mg/dL (0.6-1.0); GLUCOSE 77 mg/dL (70-105); UREA NITROGEN BLOOD 16 mg/dL (9-23)
[2024-01-01 06:16] LABS: ALANINE AMINOTRANSFERASE 30 IU/L (10-49); ALBUMIN 3.3 g/dL (3.2-4.8); ASPARTATE AMINOTRANSFERASE 27 IU/L (<34); BILIRUBIN TOTAL 0.3 mg/dL (0.1-1.0); PROTEIN TOTAL 6.7 g/dL (6.0-8.3)
[2024-01-01 08:00] VITALS: BP 125/59; PULSE 65; RESP 18; TEMP 98.3
[2024-01-01 20:00] VITALS: BP 109/46; PULSE 55; RESP 22; TEMP 96.9
[2024-01-02 08:00] VITALS: BP 167/75; PULSE 73; RESP 19; TEMP 98
[2024-01-02 20:00] VITALS: BP 121/60; PULSE 94; RESP 20; TEMP 98.2
[2024-01-02] MEDS: CARVEDILOL 12.5MG TABLET PO SCH (21:13)
[2024-01-02] MEDS: ENOXAPARIN 40MG/0.4ML SYR SUBCUT SCH (21:14)
[2024-01-03 08:00] VITALS: BP 112/54; PULSE 62; RESP 18; TEMP 97.3
[2024-01-03 09:54] VITALS: RESP 18
[2024-01-03] MEDS ORDERED: FOLI-43 PO (10:49)
[2024-01-03 11:28] VITALS: BP 119/49; PULSE 62; TEMP 97.3; O2SAT 96
[2024-01-03] MEDS ORDERED: ENOXAPARIN 30MG/0.3ML SYR SUBCUT SCH (21:00)
== END 2024-01-03 13:23 | DRG 563 ==
PROVIDERS: ADMIT Physical Medicine & Rehabilitation Spinal Cord Injury Medicine; ATTEND Internal Medicine
DX: S52.001A Unspecified fracture of upper end of right ulna, initial encounter for closed fracture (principal); L97.909 Non-pressure chronic ulcer of unspecified part of unspecified lower leg with unspecified severity; I50.32 Chronic diastolic (congestive) heart failure; I50.30 Unspecified diastolic (congestive) heart failure; Z96.652 Presence of left artificial knee joint; J44.9 Chronic obstructive pulmonary disease, unspecified; M16.0 Bilateral primary osteoarthritis of hip; G62.9 Polyneuropathy, unspecified; F32.A Depression, unspecified; F41.9 Anxiety disorder, unspecified; G89.4 Chronic pain syndrome; E03.9 Hypothyroidism, unspecified; X58.XXXA Exposure to other specified factors, initial encounter; E55.9 Vitamin D deficiency, unspecified; I11.0 Hypertensive heart disease with heart failure; M19.121 Post-traumatic osteoarthritis, right elbow; Z68.36 Body mass index [BMI] 36.0-36.9, adult; D64.9 Anemia, unspecified; E66.9 Obesity, unspecified; F06.8 Other specified mental disorders due to known physiological condition; Z96.643 Presence of artificial hip joint, bilateral; M17.12 Unilateral primary osteoarthritis, left knee; R53.81 Other malaise; L60.3 Nail dystrophy; Y93.89 Activity, other specified; Z91.81 History of falling; Z91.018 Allergy to other foods; Z88.6 Allergy status to analgesic agent; Z88.2 Allergy status to sulfonamides; Z88.0 Allergy status to penicillin; Z82.49 Family history of ischemic heart disease and other diseases of the circulatory system; Z95.828 Presence of other vascular implants and grafts; Y92.89 Other specified places as the place of occurrence of the external cause; Y99.8 Other external cause status; Z79.1 Long term (current) use of non-steroidal anti-inflammatories (NSAID); Z79.899 Other long term (current) drug therapy; Z90.49 Acquired absence of other specified parts of digestive tract
CPT/HCPCS: 36415; 73200; 80048; 80053; 82306; 82607; 82728; 82746; 83036; 83540; 83550; 84134; 84443; 85025; 97110; 97116; 97150; 97162; 97166; 97530; 97535; A4565; J1650; J3420

== ENCOUNTER 2024-12-07 14:09 | Inpatient (IN) | payer MEDICARE, MEDICAID ==
[~2024-12-07] VITALS: Ht 165.1 cm; Wt 117.1 kg
[~2024-12-07 14:09] MED LIST changes: -AYG5; -FERR-63 PO; -FLUO40CA49 PO; -LINA290C MT; -OXYC1TAB12 PO; +TOPUD MT
[2024-12-07] MEDS ORDERED: DIPHENHYDRAMINE 50MG/ML VIAL IV PRN (17:00)
[2024-12-07] MEDS ORDERED: ACETAMINOPHEN 325MG TABLET PO PRN (17:00)
[2024-12-07] MEDS ORDERED: GUAIFENESIN 200MG/10ML SUGAR FREE UDC PO PRN (17:00)
[2024-12-07] MEDS ORDERED: ONDANSETRON HCL 4MG/2ML INJ IV PRN (17:00)
[2024-12-07] MEDS ORDERED: IPRATROPIUM/ALBUTEROL 0.5-3(2.5)MG/3ML NEB HHN PRN (17:00)
[2024-12-07] MEDS ORDERED: CLONIDINE 0.1MG TABLET PO PRN (17:00)
[2024-12-07] MEDS ORDERED: MAGNESIUM/ALUMINUM HYDROXIDE/SIMETHICONE 30ML UDC PO PRN (17:00)
[2024-12-07] MEDS ORDERED: ZOLPIDEM TARTRATE 5MG TABLET PO PRN (17:00)
[2024-12-07 17:06] VITALS: BP 150/79; PULSE 70; RESP 14; RESP 18; TEMP 36.9; O2SAT 100
[2024-12-07] MEDS: HYDROCODONE/ACETAMINOPHEN 10/325MG TABLET PO PRN (18:28)
[2024-12-07 20:00] VITALS: BP 130/69; PULSE 72; RESP 18; TEMP 37.1; O2SAT 99
[2024-12-07 20:24] LABS: CHLORIDE 106 mEq/L (98-107); POTASSIUM 3.8 mEq/L (3.5-5.1); SODIUM 142 mEq/L (136-145)
[2024-12-07 20:25] LABS: CALCIUM 9.9 mg/dL (8.7-10.4)
[2024-12-07 20:30] LABS: CREATININE 0.6 mg/dL (0.6-1.0); GLUCOSE 113 mg/dL (70-105); UREA NITROGEN BLOOD 12 mg/dL (9-23)
[2024-12-07 20:37] LABS: BASOPHILS % 0.6 % (0.0-2.0); CARBON DIOXIDE 30 mEq/L (21-32); EOSINOPHILS % 1.4 % (0.0-5.0); HEMATOCRIT. 40.8 % (36.0-48.0); HEMOGLOBIN. 13.1 g/dL (12.0-16.0); LYMPHOCYTES % 40.1 % (20.0-50.0); MEAN CORPUSCULAR HEMOGLOBIN 28.4 pg (28.0-32.0); MEAN CORPUSCULAR HGB CONC 32.1 g/dL (31.0-37.0); MEAN CORPUSCULAR VOLUME 88.3 fL (81.0-99.0); MEAN PLATELET VOLUME 8.4 fl (7.4-10.4); MONOCYTES % 7.5 % (2.0-8.0); NEUTROPHILS % 50.4 % (40.0-76.0); PLATELET 242 x1000/uL (130-400); RED BLOOD CELL COUNT 4.62 mill/uL (4.2-5.4); WHITE BLOOD COUNT 5.1 x1000/uL (4.5-11.0)
[2024-12-07 20:39] LABS: PROTHROMBIN TIME 11.2 sec (9.6-11.0)
[2024-12-07] MEDS: MEROPENEM 1,000 MG in SODIUM CHLORIDE 0.9% 100 ML IV SCH (21:31)
[2024-12-07] MEDS: DOCUSATE SODIUM 100MG CAPSULE PO SCH (21:32)
[2024-12-07] MEDS: GABAPENTIN 300MG CAPSULE PO SCH (21:32)
[2024-12-07] MEDS: VANCOMYCIN 1.25GM/250ML 250 ML IV NR (21:32)
[2024-12-07] MEDS: PANTOPRAZOLE 40MG DR TABLET PO SCH (21:32)
[2024-12-07] MEDS: SODIUM CHLORIDE 0.9% 3ML FLUSH IVF SCH (21:33)
[2024-12-07] MEDS: MORPHINE SULFATE 4 MG/ML INJ (FOR IV/IM USE) IV PRN (21:35)
[2024-12-08] VITALS: BP 132/62; PULSE 72; RESP 19; TEMP 36.7; O2SAT 98
[2024-12-08 04:00] VITALS: BP 147/78; PULSE 69; RESP 18; TEMP 36.6; O2SAT 100
[2024-12-08] MEDS: MEROPENEM 1,000 MG in SODIUM CHLORIDE 0.9% 100 ML IV SCH (05:37)
[2024-12-08] MEDS: VANCOMYCIN 750MG PREMIX 150 ML IV SCH (05:37)
[2024-12-08 08:00] VITALS: BP 129/57; PULSE 81; RESP 18; TEMP 36.2; O2SAT 96
[2024-12-08] MEDS ORDERED: NALOXONE HCL 0.4MG/ML VIAL IV PRN (08:45)
[2024-12-08] MEDS: FUROSEMIDE 40MG TABLET PO SCH (09:44)
[2024-12-08] MEDS: LEVOTHYROXINE SODIUM 100MCG TABLET PO SCH (09:44)
[2024-12-08] MEDS: ENOXAPARIN 30MG/0.3ML SYR SUBCUT SCH (09:44)
[2024-12-08] MEDS: AMLODIPINE 10MG TABLET PO SCH (09:45)
[2024-12-08] MEDS: VANCOMYCIN 500MG PREMIX 100 ML IV SCH (09:51)
[2024-12-08 12:00] VITALS: BP 129/72; PULSE 92; RESP 17; TEMP 36.2; O2SAT 96
[2024-12-08 16:00] VITALS: BP 108/55; PULSE 73; RESP 16; TEMP 36.2; O2SAT 96; O2SAT 99
[2024-12-08 20:00] VITALS: BP 145/72; PULSE 75; RESP 18; TEMP 36.8; O2SAT 98
[2024-12-08] MEDS: VANCOMYCIN 1.25GM/250ML 250 ML IV SCH (20:31)
[2024-12-08] MEDS: ACETAMINOPHEN 325MG TABLET PO PRN (22:16)
[2024-12-09] VITALS: BP 131/69; PULSE 66; RESP 18; TEMP 36.7; O2SAT 100
[2024-12-09 04:00] VITALS: BP 141/75; PULSE 61; RESP 19; TEMP 36.8; O2SAT 98
[2024-12-09 08:00] VITALS: BP 133/70; PULSE 64; RESP 18; TEMP 36.5; O2SAT 98
[2024-12-09 08:52] LABS: CHLORIDE 104 mEq/L (98-107); SODIUM 142 mEq/L (136-145)
[2024-12-09 08:53] LABS: CARBON DIOXIDE 31 mEq/L (21-32)
[2024-12-09 08:54] LABS: CALCIUM 9.1 mg/dL (8.7-10.4)
[2024-12-09 08:58] LABS: CREATININE 0.5 mg/dL (0.6-1.0); GLUCOSE 86 mg/dL (70-105); UREA NITROGEN BLOOD 10 mg/dL (9-23)
[2024-12-09 12:00] VITALS: BP 129/78; PULSE 73; RESP 18; TEMP 36.7; O2SAT 97
[2024-12-09 16:00] VITALS: BP 131/73; PULSE 66; RESP 18; TEMP 36.7; O2SAT 99
[2024-12-09 20:00] VITALS: BP 114/58; PULSE 67; RESP 19; TEMP 36.7; O2SAT 97
[2024-12-10] VITALS: BP 131/72; PULSE 72; RESP 18; TEMP 36.7; O2SAT 99
[2024-12-10 04:00] VITALS: BP 114/51; PULSE 68; RESP 19; TEMP 36.7; O2SAT 98
[2024-12-10] MEDS: MEROPENEM 1G/100ML 100 ML IV SCH (06:37)
[2024-12-10 08:00] VITALS: BP 117/61; PULSE 68; RESP 19; TEMP 36.7; O2SAT 98
[2024-12-10] MEDS: FAMOTIDINE 20MG TABLET PO SCH (09:36)
[2024-12-10 12:00] VITALS: BP 109/56; PULSE 72; RESP 19; TEMP 36.2; TEMP 36.3; O2SAT 97
[2024-12-10 16:00] VITALS: BP 121/60; PULSE 89; RESP 17; TEMP 36.7; O2SAT 95
== END 2024-12-10 19:05 | disposition home health service (06) | DRG 603 ==
LOC: 6WST 15:16 → 6EST 12-10 15:11
PROVIDERS: ADMIT Internal Medicine; ATTEND Internal Medicine
DX: L03.116 Cellulitis of left lower limb (principal); L97.929 Non-pressure chronic ulcer of unspecified part of left lower leg with unspecified severity; I50.32 Chronic diastolic (congestive) heart failure; I87.8 Other specified disorders of veins; I11.0 Hypertensive heart disease with heart failure; F41.9 Anxiety disorder, unspecified; G62.9 Polyneuropathy, unspecified; R26.2 Difficulty in walking, not elsewhere classified; E03.9 Hypothyroidism, unspecified; G89.4 Chronic pain syndrome; I89.0 Lymphedema, not elsewhere classified; J44.9 Chronic obstructive pulmonary disease, unspecified; F32.A Depression, unspecified; I83.029 Varicose veins of left lower extremity with ulcer of unspecified site; Z96.643 Presence of artificial hip joint, bilateral; Z96.652 Presence of left artificial knee joint; Z86.711 Personal history of pulmonary embolism; Z86.718 Personal history of other venous thrombosis and embolism; Z88.0 Allergy status to penicillin; Z88.2 Allergy status to sulfonamides; Z88.6 Allergy status to analgesic agent; Z91.018 Allergy to other foods; Z95.828 Presence of other vascular implants and grafts; Z79.899 Other long term (current) drug therapy
CPT/HCPCS: 36415; 71045; 80048; 80202; 85025; 93005; A4606; J1650; J2185; J2270; J3370; J7050

== ENCOUNTER 2025-05-23 09:54 | Emergency (ER) | payer MEDICARE, MEDICAID ==
[~2025-05-23] VITALS: Ht 172.7 cm; Wt 150.0 kg
[~2025-05-23 09:54] MED LIST changes: -LISI40TA13 MT; +LISI40TA21 MT; -MELO-104 PO
[2025-05-23 09:58] VITALS: BP 0/0; PULSE 0; RESP 0; TEMP 36.5; O2SAT 92
== END 2025-05-23 11:20 ==
LOC: ER 10:00
DX: I46.9 Cardiac arrest, cause unspecified (principal); E03.8 Other specified hypothyroidism; I11.0 Hypertensive heart disease with heart failure; I50.9 Heart failure, unspecified; J44.9 Chronic obstructive pulmonary disease, unspecified; Z79.890 Hormone replacement therapy; Z79.899 Other long term (current) drug therapy; Z88.0 Allergy status to penicillin; Z88.1 Allergy status to other antibiotic agents; Z88.2 Allergy status to sulfonamides; Z88.6 Allergy status to analgesic agent; Z96.659 Presence of unspecified artificial knee joint
CPT/HCPCS: 82962; 92950; 99285